=== PATIENT | female | born 2000 | race Caucasian/White ===

== ENCOUNTER 2023-02-21 05:30 | Inpatient (IN) | payer OTHER ==
[2023-02-21] MEDS ORDERED: HYDROcodone/Acetaminophen 5/325 mg Tablet PO PRN ×4 (07:03→21:14)
[2023-02-21] MEDS ORDERED: NS w/ Oxytocin 30 units 500 ML IV SCH ×4 (07:03→21:14)
[2023-02-21] MEDS ORDERED: Penicillin G Potassium 5 MILL.UNITS in Sodium Chloride 0.9% 100 ML IVPB SCH (07:03)
[2023-02-21] MEDS ORDERED: Ondansetron PF 4 MG/2 ML Vial IVP PRN ×3 (07:03→21:14)
[2023-02-21] MEDS ORDERED: fentaNYL 50 mcg/mL 1 mL Vial SLOW IVP PRN (07:03)
[2023-02-21] MEDS ORDERED: Lidocaine 1% (PF) 30 ML VIAL SC PRN (07:03)
[2023-02-21] MEDS ORDERED: Promethazine HCl 25 MG/ML VIAL IM PRN ×2 (07:03→14:46)
[2023-02-21] MEDS ORDERED: Ibuprofen 800 MG TAB PO PRN (07:03)
[2023-02-21] MEDS ORDERED: hydrALAZINE 20 MG/ML VIAL SLOW IVP PRN ×2 (07:03→21:14)
[2023-02-21 08:01] VITALS: BMI 24.0
[2023-02-21 08:22] LABS: Hematocrit 36.1 % (34.9-44.5); Hemoglobin 12.2 g/dL (12.0-15.5); Mean Corpuscular HGB CONC 33.8 g/dL (32.0-36.0); Mean Corpuscular Volume 88.7 fl (81.6-98.3); Mean Platelet Volume 12.2 fl (7.4-10.4); Platelet Count 197 10x3/uL (150-450); RBC Distribution Width 13.8 % (11.5-14.5); Red Blood Cell (RBC) Count 4.07 10x6/uL (3.90-5.03); White Blood Cell (WBC) Count 10.9 10x3/uL (3.5-10.5)
[2023-02-21 11:39] LABS: HBSAg Index 0.17 S/CO (0-0.99); Hep B Surf Ag - L&D Non-Reactive S/CO (NonReactive); Syphilis Antibody Nonreactive (Nonreactive); Syphilis Antibody Index 0.02 S/CO (<1.00 Non-Reactive)
[2023-02-21] MEDS: Penicillin G 2.5 MILL.units 2.5 MILL.UNITS in Premix Bag 1 BAG IVPB SCH ×3 (12:48→19:54)
[2023-02-21] MEDS ORDERED: fentaNYL/Ropivacaine Epidural 100 ML ONE (14:04)
[2023-02-21] MEDS ORDERED: ePHEDrine Sulfate 50 MG/10 ML VIAL SLOW IVP PRN (14:46)
[2023-02-21] MEDS ORDERED: diphenhydrAMINE 50 MG/ML VIAL IVP PRN (14:46)
[2023-02-21] MEDS ORDERED: Acetaminophen 325 MG TAB PO PRN (14:46)
[2023-02-21] MEDS ORDERED: Moisturizing Cream (Eucerin) 113 GM JAR TOP PRN (14:46)
[2023-02-21] MEDS ORDERED: Lactated Ringer's 500 ML IV PRN (14:46)
[2023-02-21] MEDS ORDERED: Naloxone HCl 0.4 mg/ml Vial IVP PRN ×2 (14:46)
[2023-02-21] MEDS ORDERED: [UNRECOGNIZED DRUG - OTHER] FS PRN (15:00)
[2023-02-21] MEDS ORDERED: fentaNYL 2 mcg/Ropivacaine 0.2% Epidural 100 ML CADD EPIDURAL SCH (15:00)
[2023-02-21] MEDS: Lactated Ringer's 1,000 ML IV SCH ×2 (18:37→18:38)
[2023-02-21] MEDS ORDERED: Preparation H Ointment 28 GM TUBE PR PRN (21:14)
[2023-02-21] MEDS ORDERED: Milk Of Magnesia 30 ML UDCUP PO PRN (21:14)
[2023-02-21] MEDS ORDERED: Bisacodyl 10 MG SUPP PR PRN (21:14)
[2023-02-21] MEDS ORDERED: diphenhydrAMINE 25 MG CAP PO PRN (21:14)
[2023-02-21] MEDS ORDERED: Lanolin Ointment 7 GM TUBE TOP PRN (21:14)
[2023-02-21] MEDS ORDERED: Benzocaine-Menthol 82.5 ML CAN TOP PRN (21:14)
[2023-02-21] MEDS ORDERED: Boostrix 0.5 ML (Tdap) VIAL (>/=7 yrs of age) IM ONE (21:14)
[2023-02-21] MEDS ORDERED: Ferrous Sulfate 325 MG TAB PO SCH (21:30)
[2023-02-21] MEDS: Ibuprofen 800 MG TAB PO SCH (21:36)
[2023-02-21] MEDS: Docusate 100 MG CAP PO SCH (21:36)
[2023-02-22] MEDS: Ibuprofen 800 MG TAB PO SCH ×2 (06:20→14:12)
[2023-02-22] MEDS: Ferrous Sulfate 325 MG TAB PO SCH ×2 (07:21→19:00)
[2023-02-22] MEDS: Docusate 100 MG CAP PO SCH (08:31)
[2023-02-22] MEDS ORDERED: Prenatal Vitamin 1 TAB PO SCH (09:00)
[2023-02-22 16:32] VITALS: BP 97/52; TEMP 97.9
== END 2023-02-22 19:15 | disposition home or self-care (01) | DRG 807 ==
LOC: CSHLD 06:35 → CSHPP 21:05
PROVIDERS: ADMIT Obstetrics & Gynecology; ATTEND Obstetrics & Gynecology
PROC: 10E0XZZ Delivery of Products of Conception, External Approach (ICD-10-PCS; principal; 2023-02-21)
PROC: 3E033VJ Introduction of Other Hormone into Peripheral Vein, Percutaneous Approach (ICD-10-PCS; 2023-02-21)
DX: O99.824 Streptococcus B carrier state complicating childbirth (principal); Z37.0 Single live birth; Z3A.39 39 weeks gestation of pregnancy
CPT/HCPCS: 36415; 51702; 85027; 86780; 86850; 86900; 86901; 87340; J2540; J2590; J3490